=== PATIENT | female | born 1990 | race Caucasian/White ===

== ENCOUNTER 2018-01-06 08:10 | Day surgery (SDC) | payer MEDICAID ==
[~2018-01-06 08:10] MED LIST: PROPOFOL INJ 200 MG/20 ML VIAL IV ONE
[2018-01-06 11:26] VITALS: BP 112/63
--- NOTE | 2018-01-06 14:37 | Operative Report ---
Operative Report DATE OF SURGERY: 01/06/18 Operative Report: The risks, benefits and alternatives of the procedure including risks of bleeding, perforation requiring surgery are explained to the patient in detail and informed consent is obtained. Patient was taken back to the endoscopy suite and placed in a left, lateral decubital position. Timeout was called. Propofol medications administered. A rectal examination is done which did not reveal any masses, tears or fissures. An Olympus videoscope was inserted into the patient's rectum. The scope was then carefully advanced all the way to the cecum. Cecum was identified by the usual anatomical landmarks including the ileocecal valve as well as the appendiceal office. Photodocumentation is obtained. Scope was then sequentially pulled back via the various segments of the colon including the ascending colon, hepatic flexure, transverse colon, splenic flexure, descending colon and finding to the rectosigmoid portions of the colon. Retroflexion maneuvers performed. PREOPERATIVE DIAGNOSIS: Change in bowel habits POSTOPERATIVE DIAGNOSIS: Mild terminal ileitis status post biopsy rule out Crohn 's disease OPERATION: Colonoscopy with biopsy SURGEON: EMMA CALIXTO ANESTHESIA: LMAC TISSUE REMOVED OR ALTERED: As noted above. COMPLICATIONS: None. ESTIMATED BLOOD LOSS: None. INTRAOPERATIVE FINDINGS: As noted above. PROCEDURE: Patient tolerated procedure well. No postprocedure complications are noted. Patient discharged in good condition. Discharge date 01/06/2018. Discharge diet: Regular. Discharge activity: Regular. 2-3 week follow-up to discuss findings. Patient is instructed call the office or proceed to the emergency room should there be any further problems or questions. We will have pathology.
== END 2018-01-06 11:15 | disposition home or self-care (01) ==
LOC: END 08:10
PROVIDERS: ATTEND Internal Medicine Gastroenterology
PROC: 0DBB8ZX Excision of Ileum, Via Natural or Artificial Opening Endoscopic, Diagnostic (ICD-10-PCS; principal; 2018-01-06 10:30)
DX: K52.9 Noninfective gastroenteritis and colitis, unspecified (principal); K21.9 Gastro-esophageal reflux disease without esophagitis; F17.210 Nicotine dependence, cigarettes, uncomplicated; Z79.899 Other long term (current) drug therapy; Z88.0 Allergy status to penicillin; Z79.3 Long term (current) use of hormonal contraceptives
CPT/HCPCS: 45380; 88305 ×2; J2704; 811

== ENCOUNTER 2019-10-17 21:11 | Outpatient (CLI) | payer BC ==
[2019-10-17 21:32] LABS: APPEARANCE,URINE CLOUDY; BILIRUBIN,URINE NEGATIVE (NEGATIVE); COLOR,URINE YELLOW; GLUCOSE, URINE NEGATIVE (NEGATIVE); KETONES,URINE NEGATIVE (NEGATIVE); LEUKOCYTE ESTERASE,URINE SMALL (NEGATIVE); NITRITE,URINE NEGATIVE (NEGATIVE); PROTEIN,URINE NEGATIVE (NEGATIVE); URINE SPECIFIC GRAVITY 1.012
[2019-10-17 21:49] LABS: URINE AMPHETAMINES SCREEN NEGATIVE; URINE BARBITURATES SCREEN NEGATIVE; URINE BENZODIAZEPINES SCREEN NEGATIVE; URINE COCAINE SCREEN NEGATIVE; URINE MARIJUANA (THC) SCREEN NEGATIVE; URINE METHADONE SCREEN NEGATIVE; URINE PHENCYCLIDINE SCREEN NEGATIVE
--- NOTE | 2019-10-17 22:35 | Non Stress Test Report ---
Non Stress Test Datetime Report Generated by CPN: 10/17/2019 22:34 DEMOGRAPHIC EGA NST: 38.3 INDICATION Indication for Study (NST) Other: labor check URINE RESULTS Urine Protein, NST: Negative Urine Ketones - NST: Negative Urine Glucose - NST: Negative Urine Blood - NST: Negative MONITORING Monitor Explained: Monitor Explained; Test Explained; Patient Verbalized Understanding Time on Monitor: 10/17/2019 21:25 Time off Monitor: 10/17/2019 22:15 NST Duration: 50 NST INTERVENTIONS NST Interventions: PO Hydration Physician Notified NST: Whitney BABY A: [id number] BABY A Movement : Present Contraction Frequency : irregular FHR Baseline : 135 Accelerations : 15X15 Decelerations : None Variability : Moderate 6-25bpm NST Review: Meets Criteria for Reactive NST NST Review and Verified By : Nahum Alfredo RN NST Results: Reactive NST REPORT Report Trigger: Send Report
== END 2019-10-17 22:22 | disposition home or self-care (01) ==
LOC: LC 21:11
PROVIDERS: ATTEND Obstetrics & Gynecology
PROC: 4A1HXCZ Monitoring of Products of Conception, Cardiac Rate, External Approach (ICD-10-PCS; principal; 2019-10-17)
DX: O47.1 False labor at or after 37 completed weeks of gestation (principal); Z3A.38 38 weeks gestation of pregnancy
CPT/HCPCS: 59025; 80307; 81005

== ENCOUNTER 2019-10-27 11:00 | Inpatient (IN) | payer BC ==
[2019-10-27] MEDS ORDERED: RINGERS SOLUTION,LACTATED 1,000 ML IV PRN (11:10)
[2019-10-27] MEDS ORDERED: OXYTOCIN/NORMAL SALINE 20 UNIT/1,000 ML RTUINJ IV PRN ×2 (11:10→19:46)
[2019-10-27 11:57] LABS: ABSOLUTE EOSINOPHILS # (AUTO) 0.1 10^3/uL (0.0-0.6); ABSOLUTE LYMPHOCYTES (AUTO) 2.5 10^3/uL (0.5-4.7); ABSOLUTE MONOCYTES (AUTO) 0.6 10^3/uL (0.1-1.4); ABSOLUTE NEUT (AUTO) 6.4 10^3/uL (1.7-8.2); BASOPHILS % (AUTO) 0.3 % (0-2); EOSINOPHILS % (AUTO) 1.1 % (0-6); HEMATOCRIT 33.2 % (36.0-47.0); HEMOGLOBIN 11.3 g/dL (12.0-15.5); LYMPHOCYTES % (AUTO) 25.8 % (13-45); MEAN CORPUSCULAR HEMOGLOBIN 29.4 pg (27.0-33.4); MEAN CORPUSCULAR HGB CONC 33.9 g/dL (32.0-36.0); MEAN CORPUSCULAR VOLUME 87 fl (80-97); MONOCYTES % (AUTO) 6.3 % (3-13); PLATELET COUNT 245 10^3/uL (150-450); RED BLOOD COUNT 3.84 10^6/uL (3.72-5.28); RED CELL DISTRIBUTION WIDTH 13.6 % (11.5-14.0); SEGMENTED NEUTROPHILS % (AUTO) 66.5 % (42-78); TOTAL CELLS COUNTED % (AUTO) 100 %; WHITE BLOOD COUNT 9.7 10^3/uL (4.0-10.5)
[2019-10-27] MEDS ORDERED: OXYTOCIN 10 UNIT/ML VIAL ONE (12:01)
[2019-10-27] MEDS ORDERED: MISOPROSTOL 0.2 MG TABLET ONE (12:02)
[2019-10-27] MEDS ORDERED: OXYTOCIN/NORMAL SALINE 20 UNIT/1,000 ML RTUINJ ONE (12:02)
[2019-10-27] MEDS ORDERED: LIDOCAINE 1% INJ-PF (10 MG/ML) 30 ML SDV ONE (12:02)
--- NOTE | 2019-10-27 12:08 | Admission Physical ---
Datetime Report Generated by CPN: 10/27/2019 12:07 CURRENT ADMISSION Indication for Induction- Other: suspected macrosomia Admit Impression : Term, Intrauterine Admit Plan: Admit to Unit; Initiate Labor Induction Protocol ALLERGIES Medication Allergies: No Medication Allergies: amoxicillin/OH/rash, hives (01/06/2018) Latex: No Latex Allergies OBSTETRICAL HISTORY EDC: 10/28/2019 00:00 : 2 Para: 1 Term: 1 : 0 SAB: 0 IAB: 0 Ectopic: 0 Livin Cesareans: 0 VBACs: 0 Multiple Births: 0 Gestational Diabetes: No Rh Sensitization: No Incompetent Cervix: No OSMAN: No Infertility: No ART Treatment: No Uterine Anomaly: No IUGR: No Hx Previous C/S: No Macrosomia: No Hx Loss/Stillborn: No PIH: No Hx : No Placenta Previa/Abruption: No Depression/PP Depression: No PTL/PROM: No Post Hemorrhage: No Current Procedures: Ultrasound; NST Obstetrical History Comments: g1 - 2007 40 weeks male epidural g2 - current SEE RECORDS Alcohol: No Marijuana : No Cocaine: No Other Illicit Drugs: No Cigarettes: Former Smoker. 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 Heart Disease: No Hosp/Surgery: Yes Autoimmune Disorder: No Anesthetic Complications: No Kidney Disease: No Abnormal Pap Smear: Yes Neuro/Epilepsy: No Psychiatric Disorders: No Other Medical Diseases: No Hepatitis/Liver Disease: No Significant Family History: No Varicosities/Phlebitis: No Trauma/Violence : No Thyroid Dysfunction: No Medical History Comments: CHILDBIRTH ASCUS Pap/ +HPV Colpo negative INFECTIOUS HISTORY Gonorrhea: No Genital Herpes: No Chlamydia: No Tuberculosis: No Syphilis: No Hepatitis: No HIV/AIDS Exposure: No Rash or Viral Illness: No HPV: Yes PHYSICAL EXAM General: Normal HEENT: Normal Neurologic: Normal Thyroid: Normal Heart: Normal Lungs: Normal Breast: Normal Back: Normal Abdomen: Normal Genitourinary Exam: Normal Extremities: Normal DTRs: Normal Pelvic Type: Adequate Vital Signs: Reviewed VAGINAL EXAM Dilatation: 3 Effacement: 70 Station: -1 MEMBRANES Membranes: Intact FETUS A Monitoring: External US FHR- Baseline: 145 Variability: Moderate 6-25bpm Accelerations: 15X15 Decelerations: None FHR Category: Category I Admit Comment: at 39.6 wks here for IOL d/t suspected macrosomia on ultrasound yesterday. EFW 9+7. Pt doing well this morning, denies ROM. GBS negative, A+, Rubella Non-Immune. VE this morning /1, Vtx. Will Start Routine Pitocin. Pt does plan an epidural when in active labor. Attending MD is Dr Giles, aware of pts status. PLANS FOR LABOR AND DELIVERY Labor and Delivery: None Pain Management: Epidural Feeding Preference: Breast Benefit of Breast Feed Discussed: Yes Circumcision: N/A INFORMED CONSENT Assignment: Merna Giles MD Signature: with User ID: Eleonora : with User ID: [email or web address]
[2019-10-27 12:12] LABS: APPEARANCE,URINE SLIGHTLY-CLOUDY; BILIRUBIN,URINE NEGATIVE (NEGATIVE); COLOR,URINE YELLOW; GLUCOSE, URINE NEGATIVE (NEGATIVE); KETONES,URINE NEGATIVE (NEGATIVE); LEUKOCYTE ESTERASE,URINE SMALL (NEGATIVE); NITRITE,URINE NEGATIVE (NEGATIVE); PROTEIN,URINE NEGATIVE (NEGATIVE); URINE SPECIFIC GRAVITY 1.013; UROBILINOGEN,URINE NEGATIVE mg/dL (<2.0)
[2019-10-27 12:26] LABS: URINE AMPHETAMINES SCREEN NEGATIVE; URINE BARBITURATES SCREEN NEGATIVE; URINE BENZODIAZEPINES SCREEN NEGATIVE; URINE COCAINE SCREEN NEGATIVE; URINE MARIJUANA (THC) SCREEN NEGATIVE; URINE METHADONE SCREEN NEGATIVE; URINE PHENCYCLIDINE SCREEN NEGATIVE
[2019-10-27] MEDS ORDERED: RINGERS SOLUTION,LACTATED 300 ML IV ONE (13:00)
[2019-10-27] MEDS ORDERED: MAG HYDROX/AL HYDROX/SIMETH SUSP 30 ML UDCUP PO PRN (13:13)
[2019-10-27] MEDS ORDERED: MAG HYDROX/AL HYDROX/SIMETH SUSP 30 ML UDCUP ONE (13:13)
[2019-10-27] MEDS ORDERED: BUPIVACAINE HCL 0.25 % INJ/PF (2.5 MG/1 ML) 30 ML VIAL ONE ×2 (17:29→17:34)
[2019-10-27] MEDS ORDERED: FENTANYL/BUPIVACAINE/NS/PF 0 MCG/0 ML RTUINJ EPI ONE (17:29)
[2019-10-27] MEDS ORDERED: EPHEDRINE SULFATE INJ 50 MG/1 ML AMPULE ONE ×2 (17:29→17:34)
[2019-10-27] MEDS ORDERED: PHENYLEPHRINE HCL INJ/PF 10 MG/1 ML SDV ONE (17:33)
[2019-10-27] MEDS ORDERED: FENTANYL CITRATE INJ/PF 100 MCG/2 ML AMPUL ONE (17:33)
[2019-10-27] MEDS ORDERED: FENTANYL/BUPIVACAINE/NS/PF 300 MCG/150 ML RTUINJ EPI ONE (17:34)
[2019-10-27] MEDS ORDERED: DIBUCAINE 1% OINTMENT 56 GM TP PRN (19:46)
[2019-10-27] MEDS ORDERED: ACETAMINOPHEN WITH CODEINE #3 TABLET PO PRN ×2 (19:46)
[2019-10-27] MEDS ORDERED: NA PHOS,M-B/NA PHOS,DI-BA (ADULT) 133 ML ENEMA PR PRN (19:46)
[2019-10-27] MEDS ORDERED: PROMETHAZINE HCL INJ 25 MG/1 ML VIAL IV PRN (19:46)
[2019-10-27] MEDS ORDERED: PSEUDOEPHEDRINE HCL 30 MG TABLET PO PRN (19:46)
[2019-10-27] MEDS ORDERED: MEASLES,MUMPS&RUBELLA VACC/PF 0.5 ML VIAL SUBCUT PRN (19:46)
[2019-10-27] MEDS ORDERED: GLYCERIN/WITCH HAZEL LEAF 1 EACH MED..WIPE TP PRN (19:46)
[2019-10-27] MEDS ORDERED: PROMETHAZINE HCL 25 MG TABLET PO PRN (19:46)
[2019-10-27] MEDS ORDERED: ZOLPIDEM TARTRATE 5 MG TABLET PO PRN (19:46)
[2019-10-27] MEDS ORDERED: MAGNESIUM HYDROXIDE SUSP 30 ML UDCUP PO PRN (19:46)
[2019-10-27] MEDS ORDERED: DIPH/PERTUSS(ACELL)/TETANUS VAC/PF 0.5 ML SYR (>=10YO) IM PRN (19:46)
[2019-10-27] MEDS ORDERED: ACETAMINOPHEN 650 MG SUPP.RECT PR PRN (19:46)
[2019-10-27] MEDS ORDERED: DIPHENHYDRAMINE HCL 25 MG CAPSULE PO PRN (19:46)
[2019-10-27] MEDS ORDERED: PROMETHAZINE HCL 25 MG SUPP.RECT PR PRN (19:46)
[2019-10-27] MEDS ORDERED: BENZOCAINE/MENTHOL AEROSOL SPRAY 56 ML TOP PRN (19:46)
--- NOTE | 2019-10-27 21:02 | Delivery Summary ---
Del Sum A-C Datetime Report Generated by CPN: 10/27/2019 21:02 DELIVERY PERSONNEL DELIVERY PERSONNEL: [id number] Delivery Doctor:: Merna Giles MD Labor and Delivery Nurse:: Ann Garcia RNradio officer Nurse:: Rachel Rogers RN Chief Operator Synthesis/TRANSPORT COORDINATOR: Lelo Ross, ST MATERNAL INFORMATION Delivery Anesthesia: Epidural Medications After Delivery: Pitocin Bolus-Please Comment Meds After Delivery Comment: Pitocin 20 units Estimated Blood Loss (ml): 250 Delivery QBL: 200 Maternal Complications: None LABOR SUMMARY EDC: 10/28/2019 00:00 No. Babies in Womb: 1 Attempted: No Labor Anesthesia: Epidural LABOR INFORMATION Reason for Induction: Other Reason for Induction- Other: elective Onset of Labor: 10/27/2019 19:48 Complete Dilatation: 10/27/2019 19:19 Oxytocin: Induction Group B Beta Strep: negative Antibiotics # of Doses: 0 Steroids Given: None Reason Steroids Not Administered: Not Applicable MEMBRANES Membranes Rupture Method: Artificial Rupture of Membranes: 10/27/2019 15:39 Length of Rupture (hr): 3.95 Amniotic Fluid Color: Clear Amniotic Fluid Amount: Moderate Amniotic Fluid Odor: Normal STAGES OF LABOR Stage 1 hr: 0 Stage 1 min: -29 Stage 2 hr: 0 Stage 2 min: 17 Stage 3 hr: 0 Stage 3 min: 3 Total Time in Labor hr: 0 Total Time in Labor min: -9 VAGINAL DELIVERY Episiotomy: None Laceration #1: None Laceration Extension #1: N/A Laceration Repair: Not Applicable Sponge Count Correct: Yes Sharps Count Correct: Yes CSECTION DELIVERY Primary Indication: N/A Secondary Indication: N/A CSection Incidence: N/A Labor: N/A Elective: N/A CSection Incision: N/A BABY A INFORMATION Delivery Date/Time: 10/27/2019 19:36 Method of Delivery: Vaginal Born in Route : No : N/A Forceps: N/A Vacuum Extraction: N/A Shoulder Dystocia : No PRESENTATION/POSITION BABY A Presentation: Cephalic Cephalic Presentation: Vertex Vertex Position: Left Occipital Anterior Breech Presentation: N/A PLACENTA INFORMATION BABY A Placenta Delivery Time : 10/27/2019 19:39 Placenta Method of Delivery: Spontaneous Placenta Status: Delivered SCORES BABY A Heart Rate 1 min: >100 bpm Resp Effort 1 min: Good Cry Reflex Irritability 1 min: Cough or Sneeze or Pulls Away Muscle Tone 1 min: Active Motion Color 1 min: Body Mcgaffey, Extremities Blue Resuscitation Effort 1 min: Tactile Stimulation SCORE 1 MIN: 9 Heart Rate 5 min: >100 bpm Resp Effort 5 min: Good Cry Reflex Irritability 5 min: Cough or Sneeze or Pulls Away Muscle Tone 5 min: Active Motion Color 5 min: Body Mcgaffey, Extremities Blue SCORE 5 MIN: 9 INFANT INFORMATION BABY A Gestational Age at Delivery: 39.6 Gestational Status: Full Term- 39- 40.6 Weeks Infant Outcome : Liveborn Condition : Stable Infant Sex: Female IDENTIFICATION BABY A Verification Date/Time: 10/20/2019 19:51 ID Band Number: [id number] Mother's Name Verified: Yes Infant RN Verifying Infant: D Bellavance RN/K Jose RN WEIGHT/LENGTH BABY A Infant Birthweight (gm): 3894 Infant Weight (lb): 8 Infant Weight (oz): 9 Length (in): 20.00 Length (cm): 50.80 CORD INFORMATION BABY A No. Cord Vessels: 3 Nuchal Cord : N/A Cord Blood Taken: Yes-For Storage (Mom's Blood type +) Suction: None ASSESSMENT BABY A Skin to Skin: Yes Skin to Skin Time (min): 60 BABY B INFORMATION : N/A SIGNATURES Signature: with User ID: Anna
[2019-10-27] MEDS ORDERED: IBUPROFEN 800 MG TABLET ONE (21:38)
[2019-10-27] MEDS ORDERED: FAMOTIDINE 20 MG TABLET ONE (21:38)
[2019-10-27] MEDS: IBUPROFEN 800 MG TABLET PO SCH (21:44)
[2019-10-27] MEDS: FAMOTIDINE 20 MG TABLET PO SCH (21:44)
--- NOTE | 2019-10-27 22:04 | Warning Signs in Babies ---
VOD Warning Signs Datetime Report Generated by [facility]: 10/27/2019 22:04 VOD#608 -Warning Signs in Babies: Viewed with Parent(s)/Family (10/27/2019 21:56:Ann Garcia RN)
[2019-10-28] MEDS: IBUPROFEN 800 MG TABLET PO SCH ×3 (05:25→22:56)
[2019-10-28 07:45] LABS: HEMATOCRIT 29.6 % (36.0-47.0); MEAN CORPUSCULAR HEMOGLOBIN 29.4 pg (27.0-33.4); MEAN CORPUSCULAR HGB CONC 33.8 g/dL (32.0-36.0); MEAN CORPUSCULAR VOLUME 87 fl (80-97); PLATELET COUNT 195 10^3/uL (150-450); RED CELL DISTRIBUTION WIDTH 13.7 % (11.5-14.0); WHITE BLOOD COUNT 15.3 10^3/uL (4.0-10.5)
[2019-10-28] MEDS: PRENATAL VITAMIN W DHA CAPSULE PO SCH (09:39)
[2019-10-28] MEDS: SENNOSIDES/DOCUSATE 8.6-50 MG 1 EACH TABLET PO SCH (09:39)
[2019-10-28] MEDS: DOCUSATE SODIUM 100 MG CAPSULE PO SCH ×2 (09:39→18:09)
[2019-10-28] MEDS: FERROUS SULFATE 325 MG TABLET PO SCH ×2 (09:39→18:09)
[2019-10-28] MEDS: FAMOTIDINE 20 MG TABLET PO SCH ×2 (09:39→22:56)
--- NOTE | 2019-10-28 13:48 | PDOC PROGRESS REPORT ---
Subjective-OB Progress Note for:: 10/28/19 Subjective: 29yo G2 now P2 s/p ppd1. Ambulating and voiding without difficulty. Reports pain is well controlled with medication, no concerns today Physical Exam (OB) Vital Signs: Temp Pulse Resp BP Pulse Ox 97.5 F 58 L 16 115/60 99 10/28/19 08:17 10/28/19 08:17 10/28/19 08:17 10/28/19 08:17 10/28/19 08:17 Intake & Output 10/27/19 10/28/19 10/29/19 06:59 06:59 06:59 Weight 77.2 kg - General General Appearance: Appears well In distress: None - PIH/Pre-Eclampsia DTR's: 2 + Clonus: Negative Headache: Absent Epigastric Pain: No Visual Changes: No - Episiotomy/Laceration Site Condition: N/A - Lochia Lochia Amount: Small 10-25 ml Lochia Color: Rubra/Red - Abdomen Description: Soft Hernia Present: No Fundal Description: Firm, Midline Fundal Height: u/u - u/2 - Respiratory Respiratory Status: No respiratory distress - Extremities Upper extremity: Normal inspection Lower extremities: Normal inspection - Neurological Cognition: Normal Orientation: AAOx4 - Psychological Associated symptoms: Normal affect, Normal mood Objective-Diagnostic Laboratory: 10/28/19 07:28 10/28/19 07:28 WBC 15.3 H RBC 3.40 L Hgb 10.0 L Hct 29.6 L MCV 87 MCH 29.4 MCHC 33.8 RDW 13.7 Plt Count 195 Assessment and Plan(PN) - Assessment and Plan (1) Acute blood loss anemia Is this a current diagnosis for this admission?: Yes Plan: increase dietary iron and FeSO4 BID (2) Delivery normal Is this a current diagnosis for this admission?: Yes Plan: routine pp care - Time Spent with Patient Time with patient: Less than 15 minutes Medications reviewed and adjusted accordingly: Yes - Disposition Anticipated Discharge: Home Within: within 24 hours
[2019-10-29] MEDS: IBUPROFEN 800 MG TABLET PO SCH (05:58)
[2019-10-29] MEDS: PRENATAL VITAMIN W DHA CAPSULE PO SCH (09:10)
[2019-10-29] MEDS: SENNOSIDES/DOCUSATE 8.6-50 MG 1 EACH TABLET PO SCH (09:10)
[2019-10-29] MEDS: FERROUS SULFATE 325 MG TABLET PO SCH (09:11)
[2019-10-29] MEDS: DOCUSATE SODIUM 100 MG CAPSULE PO SCH (09:11)
[2019-10-29] MEDS: FAMOTIDINE 20 MG TABLET PO SCH (09:11)
--- NOTE | 2019-10-29 09:48 | PDOC PROGRESS REPORT ---
Subjective-OB Progress Note for:: 10/29/19 Subjective: Doing well, no c/o, , desires pp BTL Physical Exam (OB) Vital Signs: Temp Pulse Resp BP Pulse Ox 97.7 F 67 16 102/52 L 99 10/29/19 07:23 10/29/19 07:23 10/29/19 07:23 10/29/19 07:23 10/29/19 07:23 Intake & Output 10/28/19 10/29/19 10/30/19 06:59 06:59 06:59 Intake Total 240 Balance 240 Weight 77.2 kg - PIH/Pre-Eclampsia DTR's: 2 + Clonus: Negative Headache: Absent Epigastric Pain: No Visual Changes: No - Lochia Lochia Amount: Scant < 10 ml Lochia Color: Rubra/Red - Abdomen Description: Soft Hernia Present: No Fundal Description: Firm, Midline Fundal Height: u/u - u/2 Objective-Diagnostic Laboratory: 10/28/19 07:28 Assessment and Plan(PN) - Assessment and Plan (1) Delivery normal Is this a current diagnosis for this admission?: Yes (2) Acute blood loss anemia Is this a current diagnosis for this admission?: Yes - Time Spent with Patient Time with patient: Less than 15 minutes Medications reviewed and adjusted accordingly: Yes - Disposition Anticipated Discharge: Home Within: within 24 hours
--- NOTE | 2019-10-29 09:52 | PDOC DISCHARGE SUMMARY ---
Impression - Admit/DC Date/PCP Admission Date/Primary Care Provider: 10/27/19 11:00 NELSON ALEJANDRO MD Discharge Date: 10/29/19 - Discharge Diagnosis (1) Delivery normal Is this a current diagnosis for this admission?: Yes (2) Acute blood loss anemia Is this a current diagnosis for this admission?: Yes - Additional Information Resuscitation Status: Full Code Discharge Diet: As Tolerated, Regular Discharge Activity: Activity As Tolerated, Pelvic Rest Referrals: NELSON ALEJANDRO MD [Primary Care Provider] - (wha 4 weeks) Home Medications: Vit,Calc76/Iron/Folic [Prenatabs Rx Tablet] 1 each PO DAILY 10/27/19 HPI Gestational Age: 39.6 Reason(s) for Admission: Induction of Labor Procedures: NST, Ultrasound Intrapartum Procedure(s): Spontaneous Vaginal Delivery, Vacuum Extraction Hospital Course Hospital Course: routine Results Laboratory Results: WBC 15.3 10^3/uL (4.0-10.5) H 10/28/19 07:28 RBC 3.40 10^6/uL (3.72-5.28) L 10/28/19 07:28 Hgb 10.0 g/dL (12.0-15.5) L 10/28/19 07:28 Hct 29.6 % (36.0-47.0) L 10/28/19 07:28 MCV 87 fl (80-97) 10/28/19 07:28 MCH 29.4 pg (27.0-33.4) 10/28/19 07:28 MCHC 33.8 g/dL (32.0-36.0) 10/28/19 07:28 RDW 13.7 % (11.5-14.0) 10/28/19 07:28 Plt Count 195 10^3/uL (150-450) 10/28/19 07:28 Lymph % (Auto) 25.8 % (13-45) 10/27/19 11:45 [place] % (Auto) 6.3 % (3-13) 10/27/19 11:45 Eos % (Auto) 1.1 % (0-6) 10/27/19 11:45 Baso % (Auto) 0.3 % (0-2) 10/27/19 11:45 Absolute Neuts (auto) 6.4 10^3/uL (1.7-8.2) 10/27/19 11:45 Absolute Lymphs (auto) 2.5 10^3/uL (0.5-4.7) 10/27/19 11:45 Absolute Monos (auto) 0.6 10^3/uL (0.1-1.4) 10/27/19 11:45 Absolute Eos (auto) 0.1 10^3/uL (0.0-0.6) 10/27/19 11:45 Absolute Basos (auto) 0.0 10^3/uL (0.0-0.2) 10/27/19 11:45 Seg Neutrophils % 66.5 % (42-78) 10/27/19 11:45 Urine Color YELLOW 10/27/19 11:30 Urine Appearance SLIGHTLY-CLOUDY 10/27/19 11:30 Urine pH 7.0 (5.0-9.0) 10/27/19 11:30 Ur Specific [place] 1.013 10/27/19 11:30 Urine Protein NEGATIVE mg/dL (NEGATIVE) 10/27/19 11:30 Urine Glucose (UA) NEGATIVE mg/dL (NEGATIVE) 10/27/19 11:30 Urine Ketones NEGATIVE mg/dL (NEGATIVE) 10/27/19 11:30 Urine Blood NEGATIVE (NEGATIVE) 10/27/19 11:30 Urine Nitrite NEGATIVE (NEGATIVE) 10/27/19 11:30 Urine Bilirubin NEGATIVE (NEGATIVE) 10/27/19 11:30 Urine Urobilinogen NEGATIVE mg/dL (<2.0) 10/27/19 11:30 Ur Leukocyte Esterase SMALL (NEGATIVE) H 10/27/19 11:30 Urine Ascorbic Acid NEGATIVE (NEGATIVE) 10/27/19 11:30 Urine Opiates Screen NEGATIVE 10/27/19 11:30 Urine Methadone Screen NEGATIVE 10/27/19 11:30 Ur Barbiturates Screen NEGATIVE 10/27/19 11:30 Ur Phencyclidine Scrn NEGATIVE 10/27/19 11:30 Ur Amphetamines Screen NEGATIVE 10/27/19 11:30 U Benzodiazepines Scrn NEGATIVE 10/27/19 11:30 Urine Cocaine Screen NEGATIVE 10/27/19 11:30 U Marijuana (THC) Screen NEGATIVE 10/27/19 11:30 RPR NONREACTIVE (NONREACTIVE) 10/27/19 11:45 Blood Type A POSITIVE 10/27/19 11:45 Antibody Screen NEGATIVE 10/27/19 11:45 Plan Health Concerns: routine PP Plan of Treatment: rev S&S to report, routine care Goals: no complications Time Spent: Less than 30 Minutes
[2019-10-29 10:04] VITALS: BP 119/62
== END 2019-10-29 13:58 | disposition home or self-care (01) | DRG 807 ==
LOC: LR 11:00 → 2S 23:29
PROVIDERS: ADMIT Obstetrics & Gynecology; ATTEND Obstetrics & Gynecology
PROC: 10E0XZZ Delivery of Products of Conception, External Approach (ICD-10-PCS; principal; 2019-10-27)
PROC: 10907ZC Drainage of Amniotic Fluid, Therapeutic from Products of Conception, Via Natural or Artificial Opening (ICD-10-PCS; 2019-10-27)
DX: O99.02 Anemia complicating childbirth (principal); Z37.0 Single live birth; Z3A.39 39 weeks gestation of pregnancy; D64.9 Anemia, unspecified; Z88.0 Allergy status to penicillin; Z87.891 Personal history of nicotine dependence
CPT/HCPCS: 36415; 80307; 81005; 85025; 85027; 86592; 86850; 86900; 86901; J2370; J2590; J3010; J3490